=== PATIENT | female | born 1935 | race Caucasian/White ===

== ENCOUNTER 2017-11-13 12:41 | Emergency (ER) | payer OTHER ==
[~2017-11-13] VITALS: Ht 167.6 cm; Wt 45.8 kg
--- NOTE | ~2017-11-13 | EKG ---
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 : 1935 Requested By: Hawa Jamison Order Number: [id number] MD: Jason Davison Measurements Intervals [place] Rate: 86 P: 53 LA: 135 QRS: -22 QRSD: 90 T: 61 QT: 352 QTc: 421 Interpretive Statements Sinus rhythm PVCs Borderline left axis deviation Nonspecific T-wave abnormalities Compared to ECG 07/28/2008 03:52:19 Poor R-wave progression no longer present Electronically Signed On 11-13-2017 17:27:15 CDT by Jason Davison [email or web address] <ELECTRONICALLY SIGNED> By: aJson Davison MD 11/13/17 1727 1311 131 Jason Davison MD /OSVALDO
[2017-11-13] MEDS ORDERED: NORVASC5 MG PO (12:51)
[2017-11-13] MEDS ORDERED: ASPIR 8181 MG PO (12:52)
[2017-11-13 13:26] LABS: ABSOLUTE NEUTROPHILS 5.2 thou/uL (1.4-8.2); BASOPHILS 0.5 % (0.0-2.0); EOSINOPHILS 1.1 % (0.0-3.0); HEMOGLOBIN 15.5 gm/dL (12.0-15.0); LYMPHOCYTES 17.8 % (24.0-44.0); MCH 30.4 pg (26.0-34.0); MCHC 35.3 g/dL (28.0-37.0); MONOCYTES 7.1 % (1.0-8.0); PLATELET COUNT 332 thou/uL (150-400); POLYS 73.5 % (36.0-66.0); RBC 5.11 mil/uL (4.20-5.00); RDW 13.8 % (10.5-14.5)
[2017-11-13 13:49] LABS: ALBUMIN 4.1 g/dL (3.4-5.0); ANION GAP 6 mmol/L (7-16); BUN 8 mg/dL (7-18); CHLORIDE 96 mmol/L (98-107); CO2 30 mmol/L (21-32); GLUCOSE 133 mg/dL (74-106); POTASSIUM 4.1 mmol/L (3.5-5.1); SODIUM 132 mmol/L (136-145); TROPONIN-I <0.06 ng/mL (<0.06)
[2017-11-13 14:01] LABS: CALCIUM 8.5 mg/dL (8.5-10.1); CREATININE 0.7 mg/dL (0.6-1.0); SGOT 19 U/L (15-37); SGPT 22 U/L (30-65); TOTAL BILIRUBIN 0.7 mg/dL (<0.1-1.0); TOTAL PROTEIN 6.9 g/dL (6.4-8.2)
[2017-11-13 16:20] LABS: URINE BILIRUBIN NEGATIVE (Negative); URINE BLOOD NEGATIVE (Negative); URINE CLARITY CLEAR; URINE COLOR YELLOW; URINE GLUCOSE-RANDOM* NEGATIVE (Negative); URINE KETONES NEGATIVE (Negative); URINE LEUKOCYTES-REFLEX NEGATIVE (Negative); URINE NITRITE-REFLEX NEGATIVE (Negative); URINE PROTEIN (DIPSTICK) NEGATIVE (Negative); URINE SPECIFIC GRAVITY <= 1.005 (1.005-1.035); URINE UROBILINOGEN 0.2 E.U./dl (0.2-1.0)
[2017-11-13 17:10] VITALS: BP 141/76
== END 2017-11-13 17:11 | disposition home or self-care (01) ==
LOC: ER 12:41
PROVIDERS: Nurse Practitioner Family
DX: I95.1 Orthostatic hypotension (principal); R53.1 Weakness; I10 Essential (primary) hypertension; J44.9 Chronic obstructive pulmonary disease, unspecified; F41.9 Anxiety disorder, unspecified; Z88.0 Allergy status to penicillin

== ENCOUNTER → 2017-11-15 | Outpatient (CLI) | payer OTHER ==
[~2017-11-15] MED LIST: ASPIR 8181 MG PO; NORVASC5 MG PO
== END ==
LOC: SEN 09:46
DX: Z09 Encounter for follow-up examination after completed treatment for conditions other than malignant neoplasm (principal); I10 Essential (primary) hypertension; J44.9 Chronic obstructive pulmonary disease, unspecified; F41.9 Anxiety disorder, unspecified